=== PATIENT | female | born 1955 | race Caucasian/White ===

== ENCOUNTER 2018-11-23 12:51 | Emergency (ER) | payer BC ==
[2018-11-23] MEDS ORDERED: methylPREDNISolone Sodium Succinate 125 MG/2 ML SDV IVPUSH ONE (12:54)
[2018-11-23] MEDS ORDERED: diphenhydrAMINE 50 MG/ML SDV IVPUSH ONE (12:54)
[2018-11-23] MEDS ORDERED: Sodium Chloride 0.9% 10 ML Syringe FLUSH PRN (12:55)
--- NOTE | 2018-11-23 12:59 | EDM.PDOC ---
ED HPI GENERAL MEDICAL PROBLEM - General Chief Complaint: Bite:Animal, Insect Stated Complaint: GROUND WASP BITES Time Seen by Provider: 11/23/18 12:54 - History of Present Illness INITIAL COMMENTS - FREE TEXT/NARRATIVE: Stung by bee, multiple times to her left hand Has hives up both arms She is having swelling in her lips and tongue, denies feeling SOB currently; has some red flushing of face, ears currently. Took a single benadryl flat machine cutter. 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: Other (see below) (oral benadryl) Generalized Pain Score (Numeric/FACES): 5 - Related Data Allergies Allergy/AdvReac Type Severity Reaction Status Date / Time No Known Allergies Allergy Verified 11/23/18 13:02 Home Meds: Home Meds Clopidogrel [Plavix] 75 mg PO DAILY 11/23/18 [History] ED ROS GENERAL - Review of Systems Review Of Systems: See Below Constitutional: Reports: Other (tingling to lips and tongue) Respiratory: Reports: No Symptoms Cardiovascular: Reports: No Symptoms GI/Abdominal: Reports: No Symptoms Skin: Reports: Other (redness to the left hand, hives up both arms and back) Neurological: Reports: No Symptoms Psychiatric: Reports: No Symptoms ED EXAM, ANIMAL BITE - Physical Exam Exam: See Below Exam Limited By: No Limitations General Appearance: Alert, WD/WN, No Apparent Distress Nose: Normal Inspection, Normal Mucosa Throat/Mouth: Normal Inspection, Normal Lips, Normal Teeth, Normal Gums, Normal Oropharynx, Normal Voice, No Airway Compromise Head: Atraumatic, Normocephalic Neck: Normal Inspection, Supple, Non-Tender, Full Range of Motion Respiratory/Chest: No Respiratory Distress, Lungs Clear, Normal Breath Sounds Cardiovascular: Regular Rate, Rhythm GI/Abdominal: Normal Bowel Sounds, Soft, Non-Tender Rectal (Female) Exam: Normal Exam Back Exam: Normal Inspection Extremities: Normal Inspection, Normal Range of Motion Neurological: Alert, Oriented, CN II-XII Intact, Normal Cognition, Normal Gait Psychiatric: Normal Affect, Normal Mood Skin Exam: Normal Color, Warm/Dry, Rash (hives up both arms and on back) Course - Vital Signs Last Recorded V/S: Last Vital Signs Temp 96.3 F 11/23/18 13:12 Pulse 84 11/23/18 14:05 Resp 20 11/23/18 13:12 BP 116/53 L 11/23/18 14:05 Pulse Ox 98 11/23/18 14:05 - Orders/Labs/Meds Orders: Active Orders 24 hr Category Date Time Status Peripheral IV Care [RC] . DIRECTED Care 11/23/18 12:55 Active RT Aerosol Therapy [RC] ASDIRECTED Care 11/23/18 13:24 Active Peripheral IV Insertion Adult [OM.PC] Stat Oth 11/23/18 12:55 Ordered Meds: Medications Discontinued Medications Generic Name Dose Route Start Last Admin Trade Name Freq PRN Reason Stop Dose Admin Albuterol 2.5 mg 11/23/18 13:23 11/23/18 13:39 Proventil Neb Soln NEB 11/23/18 13:24 2.5 mg ONETIME ONE Administration Diphenhydramine HCl 25 mg 11/23/18 12:54 11/23/18 13:14 Benadryl IVPUSH 11/23/18 12:55 25 mg ONETIME ONE Administration Sodium Chloride 1,000 mls @ 999 mls/hr 11/23/18 13:00 11/23/18 12:58 Normal Saline IV 999 mls/hr ASDIRECTED RODRIGO Administration Methylprednisolone Sodium Succinate 125 mg 11/23/18 12:54 11/23/18 13:16 Solu-Medrol IVPUSH 11/23/18 12:55 125 mg ONETIME ONE Administration Sodium Chloride 10 ml 11/23/18 12:55 Saline Flush FLUSH ASDIRECTED PRN Keep Vein Open - Re-Assessments/Exams Free Text/Narrative Re-Assessment/Exam: 11/23/18 13:24 she states her lips and tongue feel better but her chest feels tight Will give her an albuterol neb. 11/23/18 15:25 Feeling much better; requesting discharge. Departure - Departure Time of Disposition: 15:10 Disposition: Home, Self-Care 01 Condition: Good Clinical Impression: Insect bite, Allergic reaction to bee sting - Discharge Information *PRESCRIPTION DRUG MONITORING PROGRAM REVIEWED*: Not Applicable *COPY OF PRESCRIPTION DRUG MONITORING REPORT IN PATIENT ELIZABETH: Not Applicable Instructions: Anaphylactic Reaction, Adult, [id number], Insect Bite, Adult, [id number], Hives, [id number] Referrals: PCP,None [Primary Care Provider] - Forms: ED Department Discharge Additional Instructions: Be sure to drink plenty of fluids Benadryl 25-50 mg every 8 hours as needed, would definitely recommend you take this over the next 24 hours. Take the medrol dose theresa as directed Call with questions. Return with worsening of symptoms. - Problem List & Annotations (1) Allergic reaction to bee sting SNOMED Code(s): 364611694 Code(s): T63.441A - TOXIC EFFECT OF VENOM OF BEES, ACCIDENTAL, INIT Status : Acute Priority: Medium - Problem List Review Problem List Initiated/Reviewed/Updated: Yes - My Orders Last 24 Hours: My Active Orders 11/23/18 12:55 Peripheral IV Care [RC] . DIRECTED Peripheral IV Insertion Adult [OM.PC] Stat 11/23/18 13:24 RT Aerosol Therapy [RC] ASDIRECTED - Assessment/Plan Last 24 Hours: My Active Orders 11/23/18 12:55 Peripheral IV Care [RC] . DIRECTED Peripheral IV Insertion Adult [OM.PC] Stat 11/23/18 13:24 RT Aerosol Therapy [RC] ASDIRECTED
[2018-11-23] MEDS ORDERED: Sodium Chloride 0.9% 1,000 ML IV SCH (13:00)
[2018-11-23] MEDS ORDERED: Albuterol 0.083% 2.5 MG/3 ML Neb Soln NEB ONE (13:23)
== END 2018-11-23 15:10 | disposition home or self-care (01) ==
LOC: JP.ED 12:51
DX: T63.441A Toxic effect of venom of bees, accidental (unintentional), initial encounter (principal); L50.0 Allergic urticaria
CPT/HCPCS: 94640; 96361; 96374; 96375; 99283; J1200; J2930; J7030